=== PATIENT | female | born 1960 | race American Indian/Alaskan Native ===

== ENCOUNTER 2019-12-03 08:31 | Outpatient (CLI) | payer SELFPAY ==
--- NOTE | 2019-12-03 16:14 | Treadmill Report ---
Treadmill nuclear stress test, this is the treadmill portion INDICATIONS: For palpitations, shortness of breath. Patient exercised on Rafita protocol for 7 minutes 30 seconds. Baseline heart rate was 49. Baseline blood pressure 135/57. Baseline EKG, sinus rhythm, nonspecific ST-Ts. Peak heart rate is 162, 70% max rate. Peak blood pressure 169/78. The patient had EKG changes suggestive of ischemia with [address] depression in inferolateral leads, stopped secondary to knee issues, but no shortness of breath or chest pain. SUMMARY: 1. Positive treadmill EKG. 2. Fair to good exercise capacity, 7 minutes 30 seconds Rafita protocol. 3. No exaggerated BP response to exercise. 4. Nuclear imaging are pending. JOB# [id number] NENA/KATIUSKA BUSBY
--- NOTE | 2019-12-03 17:01 | Treadmill Report ---
CARDIAC NUCLEAR PERFUSION STUDY REASON FOR STUDY: Shortness of breath and palpitations. IMAGING PROTOCOL: The patient received 10 mCi of Technetium 99m Tetrofosmin for resting image and 28 mCi of Technetium 99m Tetrofosmin for stress imaging. The imaging for the whole procedure was completed 30-90 minutes following the initial injection of Technetium 99m Tetrofosmin. The SPECT imaging in the 180 degree arc was performed in the right anterior oblique projection. Computerized reconstruction of the images was performed for analysis. IMAGING RESULTS: Normal cavity size from stress to rest. Normal distribution of radionuclide in the anterior, inferior, septal, and apical regions. Gated SPECT, EF of 65% with no wall motion abnormality. The patient exercised on Rafita protocol for 7 minutes 30 seconds, had EKG change such as ischemia in the bed early; it resolved to normal early in recovery phase with some PVCs. SUMMARY: 1. Positive treadmill EKG. 2. Fair to good exercise capacity, 7 minutes 30 seconds Rafita protocol. 3. No exaggerated BP response to exercise. 4. Normal rest and stress myocardial perfusion scan. No significant ischemia. No wall motion abnormality. Gated SPECT, EF 65%. JOB# [id number] NENA/KATIUSKA
== END 2019-12-03 08:32 | disposition home or self-care (01) ==
LOC: CARD 08:31
PROVIDERS: ATTEND Internal Medicine
DX: R07.89 Other chest pain (principal); I10 Essential (primary) hypertension; R00.2 Palpitations
CPT/HCPCS: 78452; 93017; A9502